=== PATIENT | female | born 1960 | race Two or more races ===

== ENCOUNTER 2019-04-23 06:36 | Emergency (ER) | payer MEDICAID ==
[2019-04-23] MEDS ORDERED: ACETAMINOPHEN ES 500 MG TABLET ONE (08:25)
[2019-04-23] MEDS ORDERED: ACETAMINOPHEN ES 500 MG TABLET PO ONE (08:30)
== END 2019-04-23 08:33 | disposition home or self-care (01) ==
DX: S09.8XXA Other specified injuries of head, initial encounter (principal); W17.89XA Other fall from one level to another, initial encounter; Y93.84 Activity, sleeping; Y92.811 Bus as the place of occurrence of the external cause; Y99.8 Other external cause status

== ENCOUNTER 2019-12-08 00:30 | Emergency (ER) | payer MEDICAID ==
[~2019-12-08] VITALS: Ht 167.6 cm; Wt 81.6 kg
[2019-12-08 00:40] VITALS: BP 133/82
--- NOTE | 2019-12-08 00:45 | NUR ---
PT CAME TO THE ED C/O BLISTERS AND LACERATIONS D/T RAINBOOTS. +REDNESS -BLEEDING. AWAITING FOR [facility]
--- NOTE | 2019-12-08 02:52 | NUR ---
Patient given written and verbal discharge instructions. Patient verbalizes understanding of instructions. Patient is ambulatory with steady gait. Refuses offer of [facility] placement. Patient given list of available shelters in surrounding area.
== END 2019-12-08 02:54 | disposition home or self-care (01) ==
LOC: ER 00:34
DX: S80.822A Blister (nonthermal), left lower leg, initial encounter (principal); S80.821A Blister (nonthermal), right lower leg, initial encounter; R53.82 Chronic fatigue, unspecified; Z60.2 Problems related to living alone; X58.XXXA Exposure to other specified factors, initial encounter; Y93.89 Activity, other specified; Y92.89 Other specified places as the place of occurrence of the external cause; Y99.8 Other external cause status

== ENCOUNTER 2025-05-12 16:37 | Emergency (ER) | payer MEDICARE, OTHER ==
[~2025-05-12] VITALS: Ht 165.1 cm; Wt 102.1 kg
[2025-05-12 16:44] VITALS: TEMP 97.9
[2025-05-12] MEDS ORDERED: ALBUTEROL FS 2.5 MG/3 ML VIAL.NEB ONE (17:34)
[2025-05-12 17:41] VITALS: O2SAT 96
[2025-05-12] MEDS: ALBUTEROL FS 2.5 MG/3 ML VIAL.NEB NEB ONE (17:41)
[2025-05-12] MEDS ORDERED: GUAI237L98 PO (18:03)
[2025-05-12] MEDS ORDERED: ALBU18HF2 INH (18:04)
[2025-05-12 18:39] VITALS: BP 115/85; O2SAT 97
== END 2025-05-12 18:20 | disposition home or self-care (01) ==
LOC: ER 16:40
DX: J06.9 Acute upper respiratory infection, unspecified (principal); R05.9 Cough, unspecified; R09.81 Nasal congestion; J45.909 Unspecified asthma, uncomplicated; R53.82 Chronic fatigue, unspecified; Z60.2 Problems related to living alone; Z20.822 Contact with and (suspected) exposure to COVID-19
CPT/HCPCS: 94799-TC